=== PATIENT | female | born 1990 | race Caucasian/White ===

== ENCOUNTER 2023-02-27 13:33 | Emergency (ER) | payer MEDICAID, OTHER ==
[~2023-02-27] VITALS: Ht 154.9 cm; Wt 58.0 kg
[2023-02-27 13:40] VITALS: O2SAT 98
[2023-02-27] MEDS ORDERED: ONDANSETRON 4MG ODT PO ONE (14:15)
[2023-02-27] MEDS ORDERED: MECLIZINE 25MG TABLET PO ONE (14:15)
[2023-02-27] MEDS ORDERED: MECLIZINE 25MG TABLET PO SCH (14:30)
[2023-02-27] MEDS ORDERED: MECL-159 MT (15:29)
[2023-02-27] MEDS ORDERED: ONDA4TAB11 PO (15:29)
[2023-02-27 15:58] VITALS: BP 116/80; PULSE 84; RESP 18; TEMP 98.2
== END 2023-02-27 15:59 | disposition home or self-care (01) ==
LOC: ER 13:33
DX: R42 Dizziness and giddiness (principal)
CPT/HCPCS: 99283; J8597; Q0162